=== PATIENT | male | born 1990 | race Caucasian/White ===

== ENCOUNTER 2023-12-13 19:42 | Emergency (ER) | payer SELFPAY ==
[~2023-12-13] VITALS: Ht 167.6 cm; Wt 65.0 kg
[2023-12-13 19:47] VITALS: O2SAT 99
[2023-12-13] MEDS ORDERED: IBUP-2029 MT (20:58)
[2023-12-13 21:43] VITALS: BP 106/67; PULSE 66; RESP 18; TEMP 98.5
== END 2023-12-13 21:44 | disposition home or self-care (01) ==
LOC: ER 19:42
DX: S43.122A Dislocation of left acromioclavicular joint, 100%-200% displacement, initial encounter (principal); R51.9 Headache, unspecified; V29.99XA Rider (driver) (passenger) of other motorcycle injured in unspecified traffic accident, initial encounter; Y93.89 Activity, other specified; Y92.89 Other specified places as the place of occurrence of the external cause; Y99.8 Other external cause status
CPT/HCPCS: 71045; 73030; 99284